=== PATIENT | female | born 1965 | race Caucasian/White ===

== ENCOUNTER → 2018-01-26 | Outpatient (CLI) | payer OTHER | LOC: BRMIMAGING 11:05 | PROVIDERS: ATTEND Physician Assistant Surgical | DX: Z12.31 Encounter for screening mammogram for malignant neoplasm of breast (principal) ==

== ENCOUNTER → 2018-02-02 | Outpatient (CLI) | payer OTHER | LOC: BRMIMAGING 08:56 | PROVIDERS: ATTEND Physician Assistant Surgical | DX: R92.8 Other abnormal and inconclusive findings on diagnostic imaging of breast (principal) | CPT/HCPCS: 76641-PO ==

== ENCOUNTER 2018-11-13 07:44 | Day surgery (SDC) | payer OTHER ==
[2018-11-13] MEDS ORDERED: LR 1,000 ML IV ONE (07:53)
--- NOTE | 2018-11-13 08:04 | PDANEPAE ---
ANE History of Present Illness diverticulosis, rectal bleeding, h/o colon resection ANE Past Medical History - Cardiovascular History Hx Hypertension: Yes Hx Arrhythmias: No Hx Chest Pain: No Hx Coronary Artery / Peripheral Vascular Disease: No Hx CHF / Valvular Disease: No Hx Palpitations: No Cardiovascular History Comment: pcp monitors bp medications - Pulmonary History Hx COPD: No Hx Asthma/Reactive Airway Disease: No Hx Recent Upper Respiratory Infection: No Hx Oxygen in Use at Home: No Hx Sleep Apnea: No Sleep Apnea Screening Result - Last Documented: Negative Pulmonary History Comment: recent bronchitis took abx - Neurologic History Hx Cerebrovascular Accident: No Hx Seizures: No Hx Dementia: No - Endocrine History Hx Diabetes: No Hypothyroid: Yes Hyperthyroid: No Obesity: moderate Endocrine History Comment: hypothyroidism - Renal History Hx Renal Disorders: No - Liver History Hx Hepatic Disorders: No - Neurological & Psychiatric Hx Hx Neurological and Psychiatric Disorders: Yes Neurological / Psychiatric History Comment: depression - Cancer History Hx Cancer: No - Congenital Disorder History Hx Congenital Disorders: No - GI History GERD: mild Hx Gastrointestinal Disorders: Yes Gastrointestinal History Comment: hx of lower bowel resection. reflux - Other Health History Other Health History: wears glasses/contacts. arthritis - Chronic Pain History Chronic Pain: No - Surgical History Prior Surgeries: 2017 lower anterior bowel resection. hand surgery. knee surgery. toe surgeries ANE Review of Systems Review of systems is: negative Review of Systems: - Exercise capacity Exercise capacity: >=4 METS METS (RN): 4 METS ANE Patient History - Allergies Allergies/Adverse Reactions: No Known Allergies Allergy (Verified 11/08/18 16:06) - Home Medications Home Medications: Buspar (*) 11/08/18 [Last Taken Unknown] Carvedilol 11/08/18 [Last Taken Unknown] FENOFIBRATE 11/08/18 [Last Taken Unknown] Famotidine 11/08/18 [Last Taken Unknown] Hydrochlorothiazide 11/08/18 [Last Taken Unknown] Levothyroxine 11/08/18 [Last Taken Unknown] Losartan Potassium 11/08/18 [Last Taken Unknown] Nexium 11/08/18 [Last Taken Unknown] - NPO status NPO Status: no food or drink >8 hours - Anes Hx Anes Hx: no prior problems - Smoking Hx Smoking Status: Former smoker - Family Anes Hx Family Hx Anesthesia Complications: none ANE Labs/Vital Signs - Labs Result Diagrams: 01/28/19 08:07 - Vital Signs Vital Signs: reviewed preoperatively; see RN documention for details Height: 154.94 cm Weight: 86.183 kg ANE Physical Exam - Airway Neck exam: FROM Mallampati Score: Class 2 Mouth exam: normal dental/mouth exam - Pulmonary Pulmonary: no respiratory distress - Cardiovascular Cardiovascular: regular rate and rhythym - ASA Status ASA Status: III ANE Anesthesia Plan Anesthesia Plan: GA with mask
[2018-11-13] MEDS ORDERED: PROPOFOL/EMULSION 500 MG/50 ML BOTTLE IV ONE (08:46)
--- NOTE | 2018-11-13 08:49 | PDHPUP ---
History & Physical Update H&P update statement: This history and physical update is based on an assessment of the patient which was completed after admission or registration (within 24 hours), but prior to the surgery/procedure. H&P update: H&P reviewed & patient examined, changes noted H&P changes: new rectal bleeding, RUQ post prandial pain/steatorrhea
[2018-11-13] MEDS ORDERED: PHENYLEPHRINE HCL 100 MCG/ML SYR ONE (09:12)
--- NOTE | 2018-11-13 09:35 | GIREPORT ---
[facility] Surgical Services - Endoscopy Department Patient Name: Elsa Wong Procedure Date: 11/13/2018 9:00 AM Patient Type: Outpatient Attending MD/ ER Physician: Jayden García MD Procedure: Colonoscopy Indications: Generalized abdominal pain, Rectal bleeding, Diverticulitis Providers: Jayden García MD Medicines: See the Anesthesia note for documentation of the administered medicatio ns Complications: No immediate complications. Description of Procedure: After obtaining informed consent, the scope was passed under direct vis ion. Throughout the procedure, the patient's blood pressure, pulse, and oxyg en saturations were monitored continuously. The Colonoscope with irrigatio n channel was introduced through the anus and advanced to the cecum, identified by appendiceal orifice and ileocecal valve. The entire colon was well visualized. Findings: A 9 mm polyp was found in the proximal ascending colon. The polyp was sessile. The polyp was removed with a hot snare. Resection was complete , and retrieval was complete. There was evidence of a prior end-to-end ileo-rectal anastomosis in the recto-sigmoid colon. This was patent and was characterized by healthy appearing mucosa. Internal hemorrhoids were found during retroflexion. The hemorrhoids we re medium-sized and Grade II (internal hemorrhoids that prolapse but reduc e spontaneously). Estimated Blood Loss: Estimated blood loss: none. Post Op Diagnosis: - One 9 mm polyp in the proximal ascending colon, removed with a hot sn are. Resected and retrieved. - Patent end-to-end ileo-rectal anastomosis, characterized by healthy appearing mucosa. - One 9 mm, non-bleeding polyp, removed with a hot snare. Resected and retrieved. Biopsied. Recommendation: - Patient has a contact number available for emergencies. The signs and symptoms of potential delayed complications were discussed with the pat ient. Return to normal activities tomorrow. Written discharge instructions we re provided to the patient. Attending Participation: I personally performed the entire procedure. Ricky Carpenter Jayden García MD 11/13/2018 9:34:36 AM Number of Addenda: 0 Note Initiated On: 11/13/2018 9:00 AM Total Procedure Duration Time 0 hours 22 minutes 48 seconds [email or web address]
--- NOTE | 2018-11-13 09:37 | POSTANESTH ---
Post Anesthetic Evaluation Cardiovascular Status: Normal, Stable Respiratory Status: Normal, Stable Level of Consciousness/Mental Status: Can Participate in Eval Pain Control: Adequate, Prn Tx Ordered Nausea/Vomiting Control: Adequate, Prn Tx Ordered Complications Possibly Related to Anesthesia: None Noted
[2018-11-13 10:56] VITALS: BP 113/75
== END 2018-11-13 10:40 | disposition home or self-care (01) ==
LOC: FSGY 07:44
PROVIDERS: ATTEND Surgery
PROC: 0DBK8ZX Excision of Ascending Colon, Via Natural or Artificial Opening Endoscopic, Diagnostic (ICD-10-PCS; principal; 2018-11-13 08:15)
DX: D12.2 Benign neoplasm of ascending colon (principal); K64.1 Second degree hemorrhoids; R10.84 Generalized abdominal pain; I10 Essential (primary) hypertension; E78.5 Hyperlipidemia, unspecified; E03.9 Hypothyroidism, unspecified; K21.9 Gastro-esophageal reflux disease without esophagitis; F32.9 Major depressive disorder, single episode, unspecified; Z90.49 Acquired absence of other specified parts of digestive tract; Z87.891 Personal history of nicotine dependence; Z87.19 Personal history of other diseases of the digestive system; Z82.49 Family history of ischemic heart disease and other diseases of the circulatory system
CPT/HCPCS: J2370; J2704